=== PATIENT | female | born 1960 | race Caucasian/White ===

== ENCOUNTER 2016-06-30 08:02 | Day surgery (SDC) | payer OTHER ==
[2016-06-29 11:23] VITALS: BMI 28.0
[2016-06-30] VITALS (16 sets, daily range): BP systolic 128–185; BP diastolic 61–84; PULSE 62–81; RESP 11–25; Ht 152.4 cm; Wt 68.0 kg
[~2016-06-30] VITALS: Ht 152.4 cm; Wt 68.0 kg
[~2016-06-30 08:02] MED LIST: CEFAZOLIN 2 GM/50 ML (PMX) 50 ML IVPB ONE; CEFAZOLIN 2 GM/50 ML (PMX) 50 ML IVPB SCH; IBUP-1542 PO; LEVO88TA PO; OMEP40CA6 PO; SOD CHLORIDE 0.9% 1,000 ML IV SCH; TRAM50TA2 PO
[2016-06-30] MEDS ORDERED: BUPIVACAINE 0.25% (MPF) 10 ML 10 ML VIAL ONE (09:26)
[2016-06-30] MEDS ORDERED: LIDOCAINE 2% (SDV) 5 ML INJ ONE (09:38)
[2016-06-30] MEDS ORDERED: PROPOFOL 60 ML ONE (09:38)
[2016-06-30] MEDS ORDERED: ROCURONIUM 50 MG INJ ONE (09:38)
[2016-06-30] MEDS ORDERED: FENTAnyl 50 MCG/ML VIAL ONE (09:38)
[2016-06-30] MEDS ORDERED: NEOSTIGMINE 3 MG/3 ML SYRINGE ONE (10:26)
[2016-06-30] MEDS ORDERED: CEFAZOLIN 1 GM INJ ONE (10:26)
[2016-06-30] MEDS ORDERED: GLYCOPYRROLATE 0.4 MG INJ ONE (10:26)
[2016-06-30] MEDS ORDERED: LABETALOL HCL 20MG INJ IV PRN (10:30)
[2016-06-30] MEDS ORDERED: HYDROCODONE/APAP (5/325) TAB PO ONE (10:30)
[2016-06-30] MEDS ORDERED: FENTAnyl 50 MCG/ML VIAL IV PRN ×2 (10:30)
[2016-06-30] MEDS ORDERED: DIPHENHYDRAMINE 50 MG INJ IV PRN (10:30)
[2016-06-30] MEDS ORDERED: EPHEDrine SULFATE 50 MG/5 ML SYG IV PRN (10:30)
[2016-06-30] MEDS ORDERED: MEPERIDINE 25 MG INJ IV PRN (10:30)
[2016-06-30] MEDS ORDERED: hydrALAzine 20 MG INJ IV PRN (10:30)
--- NOTE | 2016-06-30 10:30 | OPR ---
Date/Time of Note Date/Time of Note DATE: 06/30/16 TIME: 10:29 Operative Report Procedure Date: June 30, 2016 Preoperative Diagnosis symptomatic gallstones Postoperative Diagnosis same Operation Performed lap dunia therapeutic injection subcutaneously of marcaine Surgeon: Ghislaine MARCANO Anesthesia: general Specimens gallbladder Ghislaine MARCANO June 30, 2016 10:30
[2016-06-30] MEDS: FENTAnyl 50 MCG/ML VIAL IV PRN ×2 (10:45→10:54)
--- NOTE | 2016-06-30 10:52 | OPR ---
DATE OF OPERATION: 06/30/2016 INDICATION: This is a 55-year-old female with symptomatic gallstones. She requests surgical excisi on of her gallbladder. The risks, alternatives, benefits, and personnel were discussed with the pat ient. The patient expressed understanding and consented to the operation. PREOPERATIVE DIAGNOSIS: Symptomatic gallstones. POSTOPERATIVE DIAGNOSIS: Symptomatic gallstones. OPERATION PERFORMED: 1. Laparoscopic cholecystectomy. 2. Therapeutic injection [place] [address]. SURGEON: Channing Bruce MD SPECIMEN: Gallbladder. COMPLICATIONS: None. ANESTHESIA: General. PROCEDURE: The patient was taken to the OR and prepped and draped in the usual sterile fashion. A surgical timeout was performed. IV antibiotics were given. An infraumbilical transverse incision w as made with a 15 blade. Dissection cautery was carried down to the fascia which was divided with c urkaleigh Larry scissors. A bmzlaf-[id number]-jdlgb 0 Vicryl suture was placed into the fascia. Balloon Jeet trocar was introduced. Pneumoperitoneum was established. A midepigastric 12-mm optical trocar and right upper quadrant and right upper flank 5-mm optical trocars were placed under direct visualizati on. Upon initial inspection there were some adhesions to the gallbladder which were taken down blun tly. The cystic duct was identified. The critical view was established. The cystic duct was divid ed using a 35-mm [place] vascular load stapler. Additional clips were placed to reinforce the stapl e line. The cystic artery was divided with 3 clips proximal and 1 clip distal. The gallbladder was taken off the gallbladder bed. There was good hemostasis. The gallbladder was retrieved using an EndoCatch bag. There was minimal spillage. Suction irrigation was used. The ports were removed un nic direct visualization. The nhljxb-gg-mucfg 0 Vicryl sutures was tied down. The skin was closed using skin ernestine. Local anesthesia was injected and dressings were applied. Dictated By: CHANNING HAWKINS/JORGE L Conf#: [id number] DID#: [id number]
[2016-06-30] MEDS: ONDANSETRON 4 MG INJ IV PRN ×2 (10:58→11:49)
== END 2016-06-30 12:25 | disposition home or self-care (01) ==
LOC: SDS 08:02
PROVIDERS: ATTEND Surgery
DX: K80.20 Calculus of gallbladder without cholecystitis without obstruction (principal); E03.9 Hypothyroidism, unspecified
CPT/HCPCS: 47562; 88304; J0690; J2175; J2405; J2710; J3010; Z7512; Z7610